=== PATIENT | female | born 1985 | race African-American/Black ===

== ENCOUNTER 2018-11-18 14:12 | Emergency (ER) | payer MEDICAID ==
[~2018-11-18] VITALS: Ht 162.6 cm; Wt 60.0 kg
[2018-11-18] MEDS ORDERED: HYDROCODONE/ACETAMINOPHEN 5/325MG TABLET PO STA (15:59)
[2018-11-18] MEDS ORDERED: LIDOCAINE HCL/PF 1% 10 MG/ML 5ML VIAL IJ ONE (16:00)
[2018-11-18] MEDS ORDERED: BACITRACIN ZINC OINT UDPKT TOP ONE (16:00)
[2018-11-18 18:35] VITALS: BP 125/74
== END 2018-11-18 18:37 | disposition home or self-care (01) ==
LOC: ER 14:12
DX: S81.812A Laceration without foreign body, left lower leg, initial encounter (principal); S00.03XA Contusion of scalp, initial encounter; S39.012A Strain of muscle, fascia and tendon of lower back, initial encounter; Z91.041 Radiographic dye allergy status; V49.88XA Car occupant (driver) (passenger) injured in other specified transport accidents, initial encounter; Y93.89 Activity, other specified; Y92.89 Other specified places as the place of occurrence of the external cause; Y99.8 Other external cause status
CPT/HCPCS: 70450; 73590; 81025; 99284; A4217; J3490; Z7610